=== PATIENT | male | born 1975 | race Hispanic/Latino ===

== ENCOUNTER 2025-03-29 01:22 | Observation (INO) | payer SELFPAY ==
[2025-03-29] MEDS ORDERED: Ketorolac Tromethamine 30 MG (1 mL) VIAL ONE ×2 (01:46→15:51)
[2025-03-29] MEDS ORDERED: Ondansetron PF 4 MG/2 ML Vial ONE ×2 (01:46→15:51)
[2025-03-29 01:57] LABS: #Basophils 0.06 10x3/uL (0.0-0.2); #Eosinophils 0.11 10x3/uL (0.0-0.7); #Monocytes 1.13 10x3/uL (0.11-0.59); #Neutrophils 12.40 10x3/uL (1.40-6.50); %Basophils 0.4 % (0.0-1.0); %Eosinophils 0.7 % (0.0-10.0); %Lymphocytes 8.2 % (21.0-51.0); %Monocytes 7.5 % (0.0-10.0); %Neutrophils 82.7 % (42.0-75.0); Hematocrit 30.0 % (42.0-52.0); Hemoglobin 8.4 g/dL (14.0-18.0); Mean Corpuscular Hemoglobin 17.9 pg (27.0-31.0); Mean Corpuscular Volume 64.1 fL (78.0-98.0); Platelet Count 341 10x3/uL (130-400); Red Blood Cell (RBC) Count 4.68 mill/uL (4.70-6.10); White Blood Cell (WBC) Count 15.01 10x3/uL (4.8-10.8)
[2025-03-29 02:09] LABS: ALT (SGPT) 20 U/L (Less than 45); AST (SGOT) 23 U/L (11-34); Albumin 4.0 g/dL (3.1-4.5); Alkaline Phosphatase 114 U/L (40-110); Anion Gap 15 mmol/L (10-20); BUN (Urea Nitrogen) 25 mg/dL (8.9-20.6); Bilirubin, Total 0.6 mg/dL (0.3-1.2); Calc. Creatinine Clearance 0 mL/min (70-130); Calcium 8.3 mg/dL (7.8-10.44); Carbon Dioxide 24 mmol/L (22-29); Chloride 99 mmol/L (98-107); Globulin 3.9 g/dL (2.4-3.5); Glucose 113 mg/dL (70-105); Lipase 12 U/L (8-78); Potassium 4.1 mmol/L (3.5-5.1); Sodium 134 mmol/L (136-145)
[2025-03-29 02:14] LABS: Bacteria/HPF None Seen HPF (None Seen); CAUTI Indications for Culture Pelvic or flank pain; Glucose, Urine (Dipstick) 30 mg/dL (Negative); Leukocyte Negative Leu/uL (Negative); Protein, Urine (Dipstick) 10 mg/dL (Neg-Trace); RBC/HPF 0-3 HPF (0-3); Specific Gravity, Urine 1.019 (1.002-1.036); Urine Culture Reflex No No; WBC/HPF 0-3 HPF (0-3)
[2025-03-29 02:19] LABS: Anisocytosis SLIGHT = 6-15 cells HPF (0-5); Microcytosis SLIGHT = 6-15 cells HPF (0-5); Platelet Adequacy Comment Platelets Normal
[2025-03-29] MEDS ORDERED: cefTRIAXone (ROCEPHIN) 2 GM VIAL ONE (04:13)
[2025-03-29] MEDS ORDERED: Acetaminophen 325 MG TAB PO PRN (05:39)
[2025-03-29] MEDS ORDERED: Ondansetron PF 4 MG/2 ML Vial IVP PRN (05:39)
[2025-03-29] MEDS ORDERED: Calcium Carbonate 500 MG ChewTAB PO PRN (05:39)
[2025-03-29 07:27] VITALS: BMI 26.6
[2025-03-29] MEDS ORDERED: Sodium Ferric Gluconate 250 MG in Sodium Chloride 0.9% 250 ML 250 ML IVPB SCH (08:00)
[2025-03-29 08:50] LABS: Iron 15 ug/dL (65-175); Iron Binding Capacity, Total 413 mcg/dL (261-462)
[2025-03-29] MEDS: Pantoprazole 40 MG DR.TAB PO SCH (09:15)
[2025-03-29] MEDS ORDERED: Iopamidol 45 ML ONE (13:33)
[2025-03-29] MEDS ORDERED: PROPOFOL 40 ML ONE (15:06)
[2025-03-29] MEDS ORDERED: fentaNYL PF 100 MCG/2 ML SYRINGE ONE (15:11)
[2025-03-29] MEDS ORDERED: LevoFLOXacin D5W 500 mg (100 mL) BAG ONE (15:24)
[2025-03-29] MEDS ORDERED: PHENYLEPHRINE-NS 100 MCG/ML 10 ML SYRINGE ONE (15:48)
[2025-03-30 05:45] LABS: #Basophils Less than 0.03 10x3/uL (0.0-0.2); #Eosinophils Less than 0.03 10x3/uL (0.0-0.7); #Monocytes 0.22 10x3/uL (0.11-0.59); #Neutrophils 10.07 10x3/uL (1.40-6.50); %Basophils 0.1 % (0.0-1.0); %Eosinophils 0.0 % (0.0-10.0); %Lymphocytes 6.1 % (21.0-51.0); %Monocytes 2.0 % (0.0-10.0); %Neutrophils 91.4 % (42.0-75.0); Hematocrit 31.7 % (42.0-52.0); Hemoglobin 8.4 g/dL (14.0-18.0); Mean Corpuscular Hemoglobin 17.5 pg (27.0-31.0); Mean Corpuscular Volume 65.9 fL (78.0-98.0); Platelet Count 380 10x3/uL (130-400); Red Blood Cell (RBC) Count 4.81 mill/uL (4.70-6.10); White Blood Cell (WBC) Count 11.01 10x3/uL (4.8-10.8)
[2025-03-30 06:11] LABS: Anisocytosis SLIGHT = 6-15 cells HPF (0-5); Microcytosis SLIGHT = 6-15 cells HPF (0-5); Platelet Adequacy Comment Platelets Normal; Polychromasia SLIGHT = 2-3 cells HPF (0-2)
[2025-03-30 06:32] LABS: ALT (SGPT) 22 U/L (Less than 45); AST (SGOT) 38 U/L (11-34); Albumin 3.5 g/dL (3.1-4.5); Alkaline Phosphatase 116 U/L (40-110); Anion Gap 14 mmol/L (10-20); BUN (Urea Nitrogen) 18 mg/dL (8.9-20.6); Bilirubin, Total 0.3 mg/dL (0.3-1.2); Calc. Creatinine Clearance 129 mL/min (70-130); Calcium 8.4 mg/dL (7.8-10.44); Carbon Dioxide 22 mmol/L (22-29); Chloride 105 mmol/L (98-107); Globulin 4.1 g/dL (2.4-3.5); Glucose 117 mg/dL (70-105); Potassium 5.0 mmol/L (3.5-5.1); Sodium 136 mmol/L (136-145)
[2025-03-30] MEDS: Senokot S 8.6-50 MG TAB PO SCH (09:02)
[2025-03-30 12:13] VITALS: TEMP 97.7
[2025-03-30 16:29] VITALS: BP 137/89
== END 2025-03-30 17:17 | disposition home or self-care (01) ==
LOC: ERS 01:22 → T4-A 05:30
PROVIDERS: ADMIT Student in an Organized Health Care Education/Training Program; ATTEND Student in an Organized Health Care Education/Training Program
PROC: 0T768DZ Dilation of Right Ureter with Intraluminal Device, Via Natural or Artificial Opening Endoscopic (ICD-10-PCS; principal; 2025-03-30)
DX: N13.2 Hydronephrosis with renal and ureteral calculous obstruction (principal); K29.70 Gastritis, unspecified, without bleeding; D50.9 Iron deficiency anemia, unspecified; N17.9 Acute kidney failure, unspecified; Z88.0 Allergy status to penicillin; Z88.8 Allergy status to other drugs, medicaments and biological substances; Z88.1 Allergy status to other antibiotic agents
CPT/HCPCS: 36415; 74177; 74420; 80053; 81001; 82728; 83540; 83550; 83605; 83690; 85025; 86850; 86900; 86901; 96361; 96365; 96375; C1769; C2617; J0696; J1100; J1885; J1956; J2405; J2704; J3010; J7030; Q9967

== ENCOUNTER 2025-04-16 08:00 | Outpatient (CLI) | payer SELFPAY, OTHER ==
[2025-04-16 14:05] LABS: #Basophils 0.08 10x3/uL (0.0-0.2); #Eosinophils 0.20 10x3/uL (0.0-0.7); #Monocytes 0.71 10x3/uL (0.11-0.59); #Neutrophils 5.46 10x3/uL (1.40-6.50); %Basophils 1.0 % (0.0-1.0); %Eosinophils 2.4 % (0.0-10.0); %Lymphocytes 20.9 % (21.0-51.0); %Monocytes 8.7 % (0.0-10.0); %Neutrophils 66.5 % (42.0-75.0); Hematocrit 33.1 % (42.0-52.0); Hemoglobin 9.1 g/dL (14.0-18.0); Mean Corpuscular Hemoglobin 17.9 pg (27.0-31.0); Mean Corpuscular Volume 65.3 fL (78.0-98.0); Platelet Count 409 10x3/uL (130-400); Red Blood Cell (RBC) Count 5.07 mill/uL (4.70-6.10); White Blood Cell (WBC) Count 8.20 10x3/uL (4.8-10.8)
[2025-04-16 14:15] LABS: Bacteria/HPF None Seen HPF (None Seen); Glucose, Urine (Dipstick) Normal (Negative); Leukocyte Negative Leu/uL (Negative); Protein, Urine (Dipstick) Negative (Neg-Trace); Specific Gravity, Urine 1.019 (1.002-1.036); WBC/HPF 0-3 HPF (0-3)
[2025-04-16 14:18] LABS: INR-International Normal Ratio 1.2; PTT 31.2 sec (22.9-36.1); Prothrombin Time 14.9 sec (12.0-14.7)
[2025-04-16 14:32] LABS: Anion Gap 8 mmol/L (10-20); BUN (Urea Nitrogen) 11 mg/dL (8.9-20.6); Calc. Creatinine Clearance 0 mL/min (70-130); Calcium 8.8 mg/dL (7.8-10.44); Carbon Dioxide 28 mmol/L (22-29); Chloride 105 mmol/L (98-107); Glucose 111 mg/dL (70-105); Potassium 4.1 mmol/L (3.5-5.1); Sodium 137 mmol/L (136-145)
== END 2025-04-16 11:45 | disposition home or self-care (01) ==
LOC: LABBT 08:00
PROVIDERS: ATTEND Urology
DX: Z01.818 Encounter for other preprocedural examination (principal); N20.1 Calculus of ureter
CPT/HCPCS: 80048; 81001; 85025; 85610; 85730; 87086; 93005; 93010

== ENCOUNTER 2025-04-27 08:19 | Day surgery (SDC) | payer SELFPAY ==
[2025-04-16 13:17] VITALS: BMI 26.6
[2025-04-27] MEDS ORDERED: LevoFLOXacin D5W 500 mg (100 mL) BAG ONE (10:55)
[2025-04-27] MEDS ORDERED: PROPOFOL 20 ML ONE (11:47)
[2025-04-27] MEDS ORDERED: Ondansetron PF 4 MG/2 ML Vial ONE (11:47)
[2025-04-27] MEDS ORDERED: fentaNYL PF 100 MCG/2 ML SYRINGE ONE (11:47)
[2025-04-27] MEDS ORDERED: Lidocaine 1% PF 5 ML VIAL ONE (11:47)
[2025-04-27] MEDS ORDERED: Iopamidol 0 ML ONE (11:56)
[2025-04-27] MEDS ORDERED: Oxybutynin 5 MG TAB ONE (14:18)
== END 2025-04-27 16:30 | disposition home or self-care (01) ==
LOC: SDC 08:19
PROVIDERS: ATTEND Urology
DX: N20.1 Calculus of ureter (principal)
CPT/HCPCS: 74420; 82365; 88300; C1769; C2617; J1100; J1956; J2405; J2704; Q9967